=== PATIENT | male | born 1990 | race Caucasian/White ===

== ENCOUNTER 2016-07-24 20:31 | Emergency (ER) | payer MEDICAID ==
[2016-07-24] MEDS ORDERED: NS 1,000 ML IV ONE ×2 (20:43→21:45)
--- NOTE | 2016-07-24 20:45 | EDPHY ---
H & P Time Seen by Provider: 07/24/16 20:38 HPI/ROS: CHIEF COMPLAINT: Alcohol withdrawal HISTORY OF PRESENT ILLNESS: The patient is a 25-year-old homeless man who comes to the emergency department by EMS complaining of tremors and chest pain that he thinks are secondary to alcohol withdrawal. He has not had a drink in about 24 hours. He does have a history of pacemaker for sick sinus syndrome but no cardiovascular disease. He denies having any shortness of breath. He has had nausea vomiting throughout the day today. No fevers. No abdominal pain. REVIEW OF SYSTEMS: Constitutional: denies: chills, fever, recent illness, recent injury EENTM: denies: blurred vision, double vision, nose congestion Respiratory: denies: cough, shortness of breath Cardiac: See HPI Gastrointestinal/Abdominal: See HPI Genitourinary: denies: dysuria, frequency, hematuria, pain Musculoskeletal: denies: joint pain, muscle pain Skin: denies: lesions, rash, jaundice, bruising Neurological: denies: headache, numbness, paresthesia, tingling, dizziness, weakness Hematologic/Lymphatic: denies: blood clots, easy bleeding, easy bruising Immunologic/allergic: denies: HIV/AIDS, transplant EXAM: GENERAL: Well-appearing, well-nourished and in no acute distress. HEAD: Atraumatic, normocephalic. EYES: Pupils equal round and reactive to light, extraocular movements intact, sclera anicteric, conjunctiva are normal. ENT: TMs normal, nares patent, oropharynx clear without exudates. Moist mucous membranes. NECK: Normal range of motion, supple without lymphadenopathy or JVD. LUNGS: Breath sounds clear to auscultation bilaterally and equal. No wheezes rales or rhonchi. HEART: Regular rate and rhythm without murmurs, rubs or gallops. ABDOMEN: Soft, nontender, normoactive bowel sounds. No guarding, no rebound. No masses appreciated. BACK: No CVA tenderness, no spinal tenderness, step-offs or deformities EXTREMITIES: Normal range of motion, no pitting or edema. No clubbing or cyanosis. NEUROLOGICAL: Cranial nerves II through XII grossly intact. Normal speech, normal gait. 5/5 strength, normal movement in all extremities, normal sensation PSYCH: Normal mood, normal affect. SKIN: Warm, dry, normal turgor, no visible rashes or lesions. Source: Patient, EMS Exam Limitations: No limitations - Medical/Surgical History Hx Asthma: No Hx Chronic Respiratory Disease: No Hx Diabetes: No Hx Cardiac Disease: Yes Hx Renal Disease: No Hx Cirrhosis: No Hx Alcoholism: Yes Hx HIV/AIDS: No Hx Splenectomy or Spleen Trauma: No Other PMH: PSHx: pacemaker placement, AC separation repair L, appy. PMHx: sick sinus syndrome - Family History Significant Family History: No pertinent family hx - Social History Smoking Status: Current every day smoker Alcohol Use: Sober Drug Use: None Constitutional: Initial Vital Signs Temperature (C) 36.7 C 07/24/16 20:54 Heart Rate 107 H 07/24/16 20:54 Respiratory Rate 20 07/24/16 20:54 Blood Pressure 162/85 H 07/24/16 20:54 O2 Sat (%) 92 07/24/16 20:54 O2 Delivery Mode Room Air Allergies/Adverse Reactions: codeine Allergy (Verified 07/25/16 00:52) vancomycin Allergy (Verified 07/25/16 00:52) Home Medications: Medication Instructions Recorded Doxycycline Hyclate 100 mg PO BID #20 tab 06/18/16 HYDROcodone/HOMATROPINE HYCODA 1 tsp PO Q4-6PRN PRN #120 ml 06/18/16 [Hycodan Syrup (RX)] Medical Decision Making - Diagnostics EKG Interpretation: An EKG obtained and was read and documented in trace view. Please see trace view for full reading and report. Sinus rhythm, no acute ischemic changes. No signs of right heart strain. ED Course/Re-evaluation: He does have mild desaturation after receiving fentanyl. He was not hypoxic or prior to receiving fentanyl. 915 the patient is still anxious and pulling at things and tremulous. I will treat him with more Ativan. He is no longer hypoxic. 9:40 p.m. the patient is still very slightly tremulous. Heart rate is 90 until I enter the room when it goes to 105. Treat him with another mg of Ativan. He agrees to go to the [facility] with Librium prepack. Differential Diagnosis: Partial list of the Differential diagnosis considered include but were not limited to; alcohol withdrawal, anxiety, malingering and although unlikely based on the history and physical exam, I also considered acute coronary disease , arrhythmia, PE, pneumonia. I discussed these differential diagnoses and the plan with the patient as well as the usual and expected course. The patient understands that the diagnosis is provisional and that in medicine we are not always correct and that further workup is often warranted. Usual and customary warnings were given. All of the patient's questions were answered. The patient was instructed to return to the emergency department should the symptoms at all worsen or return, otherwise to followup with the physician as we discussed. - Data Points Medications Given: Discontinued Medications Chlordiazepoxide (Librium 25 Mg Prepack#6) 1 btl TAKEHOME EDNOW ONE Stop: 07/24/16 21:21 Last Admin: 07/24/16 22:37 Dose: 1 btl Sodium Chloride (Ns) 1,000 mls @ 0 mls/hr IV ONCE ONE PRN Reason: Wide Open Stop: 07/24/16 20:44 Last Admin: 07/24/16 21:04 Dose: 1,000 mls Sodium Chloride (Ns) 1,000 mls @ 0 mls/hr IV ONCE ONE PRN Reason: Wide Open Stop: 07/24/16 21:46 Last Admin: 07/24/16 21:46 Dose: 1,000 mls Lorazepam (Ativan Injection) 1 mg IVP EDNOW ONE Stop: 07/24/16 20:44 Last Admin: 07/24/16 20:50 Dose: 2 mg Lorazepam (Ativan Injection) 1 mg IVP EDNOW ONE Stop: 07/24/16 21:19 Last Admin: 07/24/16 21:22 Dose: 1 mg Lorazepam (Ativan Injection) 1 mg IVP EDNOW ONE Stop: 07/24/16 21:41 Last Admin: 07/24/16 21:45 Dose: 1 mg Departure - Departure Disposition: Home, Routine, Self-Care Clinical Impression: Alcohol withdrawal Qualifiers: Complication of substance-induced condition: uncomplicated Qualifier Code: ( F10.230) Alcohol dependence with withdrawal, uncomplicated Condition: Good Instructions: Alcohol Withdrawal (ED) Referrals: Patient,NotPresent [Unknown] - As per Instructions
[2016-07-24] MEDS ORDERED: LORazepam 2 MG/ML INJ ONE (20:47)
[2016-07-24] MEDS: LORazepam 2 MG/ML INJ IVP ONE ×2 (20:50→20:56)
--- NOTE | 2016-07-24 20:52 | CPEKG ---
Heart Rate: 96 RR Interval: 625 P-R Interval: 164 QRSD Interval: 72 QT Interval: 324 QTC Interval: 410 P [place]: 67 QRS [place]: 80 T Wave [place]: 30 EKG Severity - NORMAL ECG - EKG Impression: SINUS RHYTHM Electronically Signed By: Anjel Broussard 24-Jul-2016 20:54:21
[2016-07-24 20:56] VITALS: RESP 20
[2016-07-24] MEDS ORDERED: LORazepam 2 MG/ML INJ IVP ONE ×2 (21:18→21:40)
[2016-07-24] MEDS ORDERED: CHLORDIAZEPOXIDE 25MG PREPK#6 BTL TAKEHOME ONE (21:20)
[2016-07-24 22:46] VITALS: BP 116/57; PULSE 88; TEMP 98.4; O2SAT 94
== END 2016-07-24 23:45 | disposition home or self-care (01) ==
LOC: EDUNIT#
DX: F10.230 Alcohol dependence with withdrawal, uncomplicated (principal); F17.200 Nicotine dependence, unspecified, uncomplicated; Z95.0 Presence of cardiac pacemaker
CPT/HCPCS: 96374

== ENCOUNTER 2016-07-25 00:44 | Emergency (ER) | payer MEDICAID ==
[2016-07-25] MEDS ORDERED: MECLIZINE HCL 25 MG TAB PO ONE (00:53)
[2016-07-25] MEDS ORDERED: NS 1,000 ML IV ONE (00:53)
[2016-07-25] MEDS ORDERED: IBUPROFEN 200 MG TAB PO ONE (00:54)
--- NOTE | 2016-07-25 00:59 | EDPHY ---
H & P Stated Complaint: CHEST PAIN SENT FROM [facility] ABUSE Time Seen by Provider: 07/25/16 00:51 HPI/ROS: HPI The patient presents with chest pain which is substernal in started earlier today, rated at a 5/10 without any radiation. It is sharp in nature and has been constant. He has history of similar. He is [facility] in by ambulance [facility] where he is currently being evaluated for alcohol withdrawal. He was seen in the emergency room yesterday and was thought to be in alcohol withdrawal, given several doses of Ativan. He says he is having some dizziness and feels as if his equilibrium is off as well. He has mild nausea. His last drink was this morning, he has a history of drinking 3 pt of vodka a day. REVIEW OF SYSTEMS Constitutional: No fever, no chills. Eyes: No discharge. ENT: No sore throat. Cardiovascular: No chest pain, no palpitations. Respiratory: No cough, no shortness of breath. Gastrointestinal: No abdominal pain, no vomiting. Genitourinary: No hematuria. Musculoskeletal: No back pain. Skin: No rashes. Neurological: No headache. PMHx: Sick sinus syndrome with pacer in place Soc Hx: Homelessness, alcohol abuse PHYSICAL General Appearance: Alert, no distress Eyes: Pupils equal and round no pallor or injection ENT, Mouth: Mucous membranes moist Respiratory: There are no retractions, lungs are clear to auscultation Cardiovascular: Regular rate and rhythm Gastrointestinal: Abdomen is soft and non-tender, no masses, bowel sounds normal Neurological: A&O, cranial nerves 2-12 intact, 5/5 strength in upper and lower extremities which is symmetric, normal finger to nose and heel to sadler testing, moves all extremities Skin: Warm and dry, no rashes Musculoskeletal: Neck is supple non tender Extremities: symmetrical, full range of motion Psychiatric: Patient is oriented X 3, there is no agitation Source: Patient, EMS - Personal History Current Tetanus/Diphtheria Vaccine: Yes Current Tetanus Diphtheria and Acellular Pertussis (TDAP): Yes - Medical/Surgical History Hx Asthma: No Hx Chronic Respiratory Disease: No Hx Diabetes: No Hx Cardiac Disease: Yes Hx Renal Disease: No Hx Cirrhosis: No Hx Alcoholism: Yes Hx HIV/AIDS: No Hx Splenectomy or Spleen Trauma: No Other PMH: PSHx: pacemaker placement, AC separation repair L, appy. PMHx: sick sinus syndrome - Social History Smoking Status: Current every day smoker Constitutional: Initial Vital Signs Temperature (C) 37.2 C 07/25/16 00:45 Heart Rate 85 07/25/16 00:45 Respiratory Rate 18 07/25/16 00:45 Blood Pressure 131/81 H 07/25/16 00:45 O2 Sat (%) 95 07/25/16 00:45 O2 Delivery Mode Room Air Allergies/Adverse Reactions: codeine Allergy (Verified 07/25/16 00:52) vancomycin Allergy (Verified 07/25/16 00:52) Home Medications: Medication Instructions Recorded Doxycycline Hyclate 100 mg PO BID #20 tab 06/18/16 HYDROcodone/HOMATROPINE HYCODA 1 tsp PO Q4-6PRN PRN #120 ml 06/18/16 [Hycodan Syrup (RX)] Medical Decision Making - Diagnostics EKG Interpretation: EKG: Complete interpretation has been separately recorded in the [employer] archive. Summary impression: Atrially paced rhythm with rate of 80 Imaging: Chest x-ray one view shows pacer wires in place, no cardiomegaly, no pneumothorax, no pneumonia, interpreted by me, radiology interpretation pending. ED Course/Re-evaluation: The patient's pain improved while he was in the emergency room and he was sleeping comfortably for most of his stay. His labs and studies are all unremarkable. His chest pain could be related to alcoholic gastritis versus musculoskeletal pain. I have explained this to him. Initially, he was unsteady on his feet, I feel this could be related to the Ativan use, though I did give him a dose of meclizine. He was monitored for about 1 hour an and then when he was ambulated again he did this without difficulty with a steady gait. He will be discharged back to the [facility]. Differential Diagnosis: This is a 25-year-old male with history of alcohol abuse, sick sinus syndrome, seen earlier today for alcohol withdrawal symptoms who now presents with chest pain. He had mild chest pain earlier today but was complaining of this at the [facility], thus is brought in by ambulance. Differential diagnosis includes ACS, GERD, gastritis, pleural effusion, pneumonia. - Data Points Laboratory Results: Laboratory Results 07/25/16 01:00 07/25/16 01:00 07/25/16 01:00 WBC 4.87 10^3/uL (3.80-9.50) RBC 4.70 10^6/uL (4.40-6.38) Hgb 16.0 g/dL (13.7-17.5) Hct 43.0 % (40.0-51.0) MCV 91.5 fL (81.5-99.8) MCH 34.0 pg (27.9-34.1) MCHC 37.2 H g/dL (32.4-36.7) RDW 11.9 % (11.5-15.2) Plt Count 139 L 10^3/uL (150-400) MPV 11.0 fL (8.7-11.7) Neut % (Auto) 52.1 % (39.3-74.2) Lymph % (Auto) 34.5 % (15.0-45.0) [place] % (Auto) 9.9 % (4.5-13.0) Eos % (Auto) 2.7 % (0.6-7.6) Baso % (Auto) 0.6 % (0.3-1.7) Nucleat RBC Rel Count 0.0 % (0.0-0.2) Absolute Neuts (auto) 2.54 10^3/uL (1.70-6.50) Absolute Lymphs (auto) 1.68 10^3/uL (1.00-3.00) Absolute Monos (auto) 0.48 10^3/uL (0.30-0.80) Absolute Eos (auto) 0.13 10^3/uL (0.03-0.40) Absolute Basos (auto) 0.03 10^3/uL (0.02-0.10) Absolute Nucleated RBC 0.00 10^3/uL (0-0.01) Immature Gran % 0.2 % (0.0-1.1) Immature Gran # 0.01 10^3/uL (0.00-0.10) Sodium 139 mEq/L (134-144) Potassium 3.7 mEq/L (3.5-5.2) Chloride 110 mEq/L (97-110) Carbon Dioxide 24 mEq/l (22-31) Anion Gap 5 mEq/L (8-16) BUN 12 mg/dL (7-23) Creatinine 1.0 mg/dL (0.7-1.3) Estimated GFR > 60 Glucose 93 mg/dL (70-100) Calcium 8.1 L mg/dL (8.5-10.4) Troponin I < 0.012 ng/mL (0-0.034) Medications Given: Discontinued Medications Sodium Chloride (Ns) 1,000 mls @ 0 mls/hr IV ONCE ONE PRN Reason: Wide Open Stop: 07/25/16 00:54 Last Admin: 07/25/16 01:04 Dose: 1,000 mls Ibuprofen (Motrin) 400 mg PO EDNOW ONE Stop: 07/25/16 00:55 Last Admin: 07/25/16 01:05 Dose: 400 mg Meclizine HCl (Meclizine Hcl) 25 mg PO EDNOW ONE Stop: 07/25/16 00:54 Last Admin: 07/25/16 01:05 Dose: 25 mg Departure - Departure Disposition: Home, Routine, Self-Care Clinical Impression: Chest pain Condition: Good Instructions: Chest Pain (ED) Referrals: [facility] [Outside] - As per Instructions
[2016-07-25 01:10] LABS: % IMMATURE GRANULYOCYTES 0.2 % (0.0-1.1); ABSOLUTE IMMATURE GRANULOCYTES 0.01 10^3/uL (0.00-0.10); ADD DIFF? NO; ADD MORPH? NO; ADD SCAN? NO; ATYPICAL LYMPHOCYTE FLAG 20 (0-99); FRAGMENT RBC FLAG 0 (0-99); LEFT SHIFT FLG 0 (0-99); LIPEMIA HEMOLYSIS FLAG 90 (0-99); MEAN CELL HEMOGLOBIN CONCENTR. 37.2 g/dL (32.4-36.7); MEAN CELL VOLUME 91.5 fL (81.5-99.8); PLATELET CLUMPS FLAG 10 (0-99); PLATELET COUNT 139 10^3/uL (150-400); RED CELL DISTRIBUTION WIDTH 11.9 % (11.5-15.2)
[2016-07-25 01:31] LABS: ANION GAP 5 mEq/L (8-16); CALCIUM 8.1 mg/dL (8.5-10.4); CARBON DIOXIDE 24 mEq/l (22-31); CHLORIDE 110 mEq/L (97-110); GLOMERULAR FILTRATION RATE > 60; GLUCOSE 93 mg/dL (70-100); POTASSIUM 3.7 mEq/L (3.5-5.2); SODIUM 139 mEq/L (134-144)
[2016-07-25 01:43] LABS: TROPONIN I < 0.012 ng/mL (0-0.034)
[2016-07-25 03:49] VITALS: BP 106/62; PULSE 81; RESP 16; TEMP 98.8; O2SAT 93
--- NOTE | 2016-07-25 08:17 | DX ---
Chest, Single View at 0108 hours History: Chest pain. Comparison: May 2016 Findings: Cardiac silhouette is within normal range. No pneumonia, congestive heart failure, pleural effusion, or pneumothorax. Left chest wall bipolar pacemaker with leads in the right atrium and right ventricle. Impression: 1. Pacemaker without pneumothorax. 2. No acute pulmonary disease.
--- NOTE | 2016-07-25 08:40 | CPEKG ---
Heart Rate: 80 RR Interval: 750 P-R Interval: 184 QRSD Interval: 74 QT Interval: 360 QTC Interval: 416 QRS [place]: 88 T Wave [place]: 45 EKG Severity - ABNORMAL ECG - EKG Impression: ATRIAL-PACED RHYTHM Electronically Signed By: Melvi Rodríguez 26-Jul-2016 10:12:32
== END 2016-07-25 04:00 | disposition home or self-care (01) ==
LOC: EDUNIT#
DX: R07.9 Chest pain, unspecified (principal); F17.200 Nicotine dependence, unspecified, uncomplicated; Z95.0 Presence of cardiac pacemaker

== ENCOUNTER 2016-07-25 21:05 | Emergency (ER) | payer MEDICAID ==
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
[2016-07-25] MEDS ORDERED: LORazepam 2 MG/ML INJ ONE (21:14)
[2016-07-25] MEDS ORDERED: LORazepam 2 MG/ML INJ IVP ONE (21:16)
[2016-07-25] MEDS ORDERED: HALOPERIDOL LACT 5 MG/ML INJ IVP ONE (21:40)
[2016-07-25] MEDS ORDERED: NS 1,000 ML IV ONE (21:55)
[2016-07-25 22:35] LABS: ANION GAP 13 mEq/L (8-16); CALCIUM 8.6 mg/dL (8.5-10.4); CARBON DIOXIDE 22 mEq/l (22-31); CHLORIDE 113 mEq/L (97-110); CREATININE 1.1 mg/dL (0.7-1.3); GLOMERULAR FILTRATION RATE > 60; GLUCOSE 97 mg/dL (70-100); SODIUM 148 mEq/L (134-144)
[2016-07-25 22:44] LABS: ETHANOL SERUM 332 mg/dL (0-10)
[2016-07-25 22:48] LABS: % IMMATURE GRANULYOCYTES 0.3 % (0.0-1.1); ABSOLUTE IMMATURE GRANULOCYTES 0.01 10^3/uL (0.00-0.10); ADD DIFF? NO; ADD MORPH? NO; ADD SCAN? NO; ATYPICAL LYMPHOCYTE FLAG 20 (0-99); FRAGMENT RBC FLAG 0 (0-99); HEMATOCRIT 46.5 % (40.0-51.0); HEMOGLOBIN 16.7 g/dL (13.7-17.5); LEFT SHIFT FLG 0 (0-99); LIPEMIA HEMOLYSIS FLAG 90 (0-99); MEAN CELL HEMOGLOBIN 32.6 pg (27.9-34.1); MEAN CELL HEMOGLOBIN CONCENTR. 35.9 g/dL (32.4-36.7); MEAN CELL VOLUME 90.8 fL (81.5-99.8); MEAN PLATELET VOLUME 11.1 fL (8.7-11.7); PLATELET CLUMPS FLAG 0 (0-99); PLATELET COUNT 149 10^3/uL (150-400); RED BLOOD CELL COUNT 5.12 10^6/uL (4.40-6.38); RED CELL DISTRIBUTION WIDTH 11.8 % (11.5-15.2)
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
[2016-07-26 02:38] VITALS: BP 124/71; PULSE 88; RESP 16; TEMP 97.7; O2SAT 95
== END 2016-07-26 02:39 | disposition home or self-care (01) ==
LOC: EDUNIT#
DX: F10.129 Alcohol abuse with intoxication, unspecified (principal); F17.200 Nicotine dependence, unspecified, uncomplicated; Z95.0 Presence of cardiac pacemaker
CPT/HCPCS: 96374; G0480

== ENCOUNTER 2016-07-31 18:48 | Emergency (ER) | payer MEDICAID ==
[2016-07-31] MEDS ORDERED: LORazepam 2 MG/ML INJ ONE (18:53)
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
[2016-07-31] MEDS ORDERED: LORazepam 2 MG/ML INJ IVP ONE ×4 (18:57→19:42)
[2016-07-31 19:05] VITALS: TEMP 98.2
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
[2016-07-31] MEDS ORDERED: IBUPROFEN 200 MG TAB PO ONE ×2 (22:14→22:15)
[2016-07-31 22:37] VITALS: BP 115/82; PULSE 81; RESP 16; O2SAT 94
== END 2016-07-31 22:35 | disposition home or self-care (01) ==
LOC: EDUNIT#
PROC: 0HQ0XZZ Repair Scalp Skin, External Approach (ICD-10-PCS; principal; 2016-07-31)
DX: S01.01XA Laceration without foreign body of scalp, initial encounter (principal); F10.129 Alcohol abuse with intoxication, unspecified; Y04.0XXA Assault by unarmed brawl or fight, initial encounter; Y93.89 Activity, other specified
CPT/HCPCS: 96374

== ENCOUNTER 2016-08-01 04:22 | Emergency (ER) | payer MEDICAID ==
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
[2016-08-01] MEDS ORDERED: ONDANSETRON DISINTEGRATING 4 MG TAB PO ONE (04:26)
[2016-08-01] MEDS ORDERED: IBUPROFEN 200 MG TAB PO ONE (04:26)
[2016-08-01 04:35] VITALS: RESP 16; TEMP 98.1; O2SAT 96
[2016-08-01] MEDS ORDERED: CHLORDIAZEPOXIDE 25MG PREPK#6 BTL TAKEHOME ONE ×2 (05:41→05:43)
[2016-08-01 05:49] VITALS: BP 136/87; PULSE 79
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
== END 2016-08-01 05:55 | disposition home or self-care (01) ==
LOC: EDUNIT#
DX: S06.0X0A Concussion without loss of consciousness, initial encounter (principal); S00.03XA Contusion of scalp, initial encounter; F17.200 Nicotine dependence, unspecified, uncomplicated; Y09 Assault by unspecified means; S39.012A Strain of muscle, fascia and tendon of lower back, initial encounter; Y08.89XA Assault by other specified means, initial encounter

== ENCOUNTER 2016-08-01 16:47 | Emergency (ER) | payer MEDICAID ==
[2016-08-01 16:56] VITALS: PULSE 79; O2SAT 97
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
[2016-08-01] MEDS ORDERED: ACETAMINOPHEN 325 MG TAB PO ONE (17:55)
[2016-08-01 18:15] VITALS: BP 148/102; RESP 16; TEMP 98.4
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
== END 2016-08-01 18:18 | disposition home or self-care (01) ==
LOC: EDUNIT#
DX: S39.012A Strain of muscle, fascia and tendon of lower back, initial encounter (principal); F17.200 Nicotine dependence, unspecified, uncomplicated; Y08.89XA Assault by other specified means, initial encounter

== ENCOUNTER 2016-08-11 17:50 | Emergency (ER) | payer MEDICAID ==
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
[2016-08-11 18:24] LABS: % IMMATURE GRANULYOCYTES 0.2 % (0.0-1.1); ABSOLUTE IMMATURE GRANULOCYTES 0.01 10^3/uL (0.00-0.10); ADD DIFF? NO; ADD MORPH? NO; ADD SCAN? NO; ATYPICAL LYMPHOCYTE FLAG 0 (0-99); FRAGMENT RBC FLAG 0 (0-99); HEMATOCRIT 50.5 % (40.0-51.0); LEFT SHIFT FLG 0 (0-99); LIPEMIA HEMOLYSIS FLAG 90 (0-99); MEAN CELL HEMOGLOBIN 33.4 pg (27.9-34.1); MEAN CELL HEMOGLOBIN CONCENTR. 35.6 g/dL (32.4-36.7); MEAN CELL VOLUME 93.7 fL (81.5-99.8); MEAN PLATELET VOLUME 10.7 fL (8.7-11.7); PLATELET CLUMPS FLAG 60 (0-99); PLATELET COUNT 145 10^3/uL (150-400); RED BLOOD CELL COUNT 5.39 10^6/uL (4.40-6.38); RED CELL DISTRIBUTION WIDTH 12.9 % (11.5-15.2)
[2016-08-11 18:40] LABS: ANION GAP 11 mEq/L (8-16); CALCIUM 9.3 mg/dL (8.5-10.4); CARBON DIOXIDE 29 mEq/l (22-31); CHLORIDE 108 mEq/L (97-110); ETHANOL SERUM 135 mg/dL (0-10); GLOMERULAR FILTRATION RATE > 60; GLUCOSE 80 mg/dL (70-100); POTASSIUM 3.9 mEq/L (3.5-5.2); SODIUM 148 mEq/L (134-144)
[2016-08-11 22:47] VITALS: O2SAT 97
[2016-08-12] MEDS ORDERED: CHLORDIAZEPOXIDE 25MG PREPK#6 BTL TAKEHOME ONE (11:48)
[2016-08-12 12:03] VITALS: BP 143/105; PULSE 84; RESP 18; TEMP 97.5
== END 2016-08-12 12:17 | disposition home or self-care (01) ==
LOC: EDUNIT#
DX: R45.851 Suicidal ideations (principal); F19.10 Other psychoactive substance abuse, uncomplicated; F10.120 Alcohol abuse with intoxication, uncomplicated; F17.200 Nicotine dependence, unspecified, uncomplicated
CPT/HCPCS: 80305; G0480